=== PATIENT | female | born 1955 | race Caucasian/White ===

== ENCOUNTER 2018-01-21 07:50 | Emergency (ER) | payer BC ==
[~2018-01-21] VITALS: Ht 152.4 cm; Wt 61.2 kg
[2018-01-21] MEDS ORDERED: NAPROSYN500 MG PO (09:39)
[2018-01-21] MEDS ORDERED: TESSALON200 MG PO (09:39)
[2018-01-21 09:52] VITALS: BP 127/64
== END 2018-01-21 09:57 | disposition home or self-care (01) ==
LOC: EME 07:50
PROVIDERS: Nurse Practitioner Family
DX: J10.1 Influenza due to other identified influenza virus with other respiratory manifestations (principal); R11.0 Nausea; J45.909 Unspecified asthma, uncomplicated; K21.9 Gastro-esophageal reflux disease without esophagitis; Z88.1 Allergy status to other antibiotic agents; Z88.8 Allergy status to other drugs, medicaments and biological substances
CPT/HCPCS: 87502; 99281; 99284; J1885

== ENCOUNTER 2018-05-14 15:03 | Observation (INO) | payer BC ==
[~2018-05-14] VITALS: Ht 152.4 cm; Wt 62.0 kg
[~2018-05-14 15:03] MED LIST: NAPROSYN500 MG PO; TESSALON200 MG PO
[2018-05-14 16:10] LABS: HEMATOCRIT 38.6 % (36.0-46.0); HEMOGLOBIN 13.2 G/DL (11.9-15.5); MCHC 34.2 G/DL (30.0-36.0); MCV 93.7 FL (83-99); PLATELET COUNT 218 K/uL (156-360); RBC DIS.WIDTH-CV 13.4 % (11.8-14.6); RBC DIS.WIDTH-SD 45.9 % (39-53); RED BLOOD COUNT 4.12 M/uL (3.80-5.20); WHITE BLOOD COUNT 8.4 K/uL (4.1-10.2)
[2018-05-14 16:25] LABS: CHLORIDE 110 mEq/L (99-109); POTASSIUM 4.3 mEq/L (3.7-5.4); SODIUM 143 mEq/L (136-147)
[2018-05-14 16:27] LABS: GLUCOSE 116 mg/dL (70-99)
[2018-05-14 16:31] LABS: CREATININE 0.9 mg/dL (0.6-1.3); GFR ESTIMATE (CALCULATED) > 59 mL/min/
[2018-05-14 16:32] LABS: UREA NITROGEN (BUN) 20 mg/dL (9-23)
[2018-05-14 16:40] LABS: APPEARANCE SL.HAZY ((CLEAR)); BILIRUBIN NEGATIVE; BLOOD SMALL; COLOR YELLOW ((YELLOW)); GLUCOSE (STRIP) NEGATIVE; KETONES NEGATIVE; LEUKOCYTES NEGATIVE; NITRITE NEGATIVE; PROTEIN (STRIP) 30; SPECIFIC GRAVITY 1.029 (1.000-1.030)
[2018-05-14 16:48] LABS: BACTERIA NONE SEEN /HPF; EPITHELIAL CELLS 1+ /HPF; MUCUS 2+ /LPF; UCUL ADDED? NO; WHITE BLOOD CELLS 0-5 /HPF (0-5)
[2018-05-14] MEDS ORDERED: TIROSINT13 MCG PO (19:20)
[2018-05-14] MEDS ORDERED: CRESTOR10 MG PO (19:21)
[2018-05-14] MEDS ORDERED: VITAMIN D10000 UNIT PO (19:22)
[2018-05-14] MEDS ORDERED: ZOFRAN ODT4 MG PO (19:28)
[2018-05-14] MEDS ORDERED: PERCOCET 5/31 TABLET PO (19:28)
[2018-05-14] MEDS ORDERED: ROSUVASTATIN CA10 MG PO (21:50)
[2018-05-14] MEDS ORDERED: SYNTHROID88 MCG PO (21:50)
[2018-05-14] MEDS ORDERED: CAL MAG ZINC +1 EAC1 PO (21:53)
[2018-05-14] MEDS ORDERED: ADVAIR 100/501 DISK IH (21:54)
[2018-05-15 00:08] VITALS: BP 156/71
[2018-05-15 03:43] VITALS: BP 156/70
[2018-05-15 05:32] LABS: BASOPHIL (%) 0.3 % (0-1); EOSINOPHIL COUNT 0.1 K/uL (0-0.3); HEMATOCRIT 34.3 % (36.0-46.0); HEMOGLOBIN 11.3 G/DL (11.9-15.5); IMMATURE GRANULOCYTE (%) 0.3 % (0.0-0.7); LYMPHOCYTE (%) 18.5 % (15-42); LYMPHOCYTE COUNT 1.3 K/uL (1.0-2.8); MCH 30.9 PG (29.0-34.0); MCHC 32.9 G/DL (30.0-36.0); MCV 93.7 FL (83-99); MONOCYTE (%) 8.9 % (3-12); MONOCYTE COUNT 0.6 K/uL (0-0.8); PLATELET COUNT 186 K/uL (156-360); RBC DIS.WIDTH-CV 13.4 % (11.8-14.6); RBC DIS.WIDTH-SD 46.4 % (39-53); RED BLOOD COUNT 3.66 M/uL (3.80-5.20)
[2018-05-15 05:53] LABS: CHLORIDE 110 MEQ/L (99-109); CREATININE 1.1 MG/DL (0.6-1.3); GFR ESTIMATE (CALCULATED) 53 mL/min/; GLUCOSE 106 mg/dL (70-99); POTASSIUM 3.8 MEQ/L (3.7-5.4); SODIUM 143 MEQ/L (136-147); UREA NITROGEN (BUN) 18 mg/dL (9-23)
[2018-05-15 07:29] VITALS: BP 106/51
[2018-05-15 11:40] VITALS: BP 138/68
[2018-05-15] MEDS ORDERED: PERCOCET 5/31 TABLET PO (16:35)
[2018-05-15 17:45] VITALS: BP 150/69
== END 2018-05-15 18:35 | disposition home or self-care (01) ==
LOC: EXP 15:03 → EME 15:03 → EDOF 22:41 → 4SOUTH 22:41 → EDOF 22:41 → ENRESERV 22:44 → 4SOUTH 05-15 00:06
PROVIDERS: Hospitalist
DX: N13.2 Hydronephrosis with renal and ureteral calculous obstruction (principal); E78.5 Hyperlipidemia, unspecified; Z87.442 Personal history of urinary calculi; Z90.710 Acquired absence of both cervix and uterus; Z88.1 Allergy status to other antibiotic agents; Z88.8 Allergy status to other drugs, medicaments and biological substances; Z82.49 Family history of ischemic heart disease and other diseases of the circulatory system; Z82.61 Family history of arthritis
CPT/HCPCS: 74018; 74176; 76000; 80048; 81003; 82948; 85025; 85027; 99281; 99285; C2625; G0378; J1580; J1885; J2270; J2405; J3010; J7030; J7050